=== PATIENT | male | born 1965 | race Caucasian/White ===

== ENCOUNTER → 2019-07-03 | Outpatient (REF) | payer OTHER | LOC: M LAB LCGH 13:53 | PROVIDERS: ATTEND Family Medicine | DX: C44.519 Basal cell carcinoma of skin of other part of trunk (principal) ==

== ENCOUNTER → 2019-09-03 | Outpatient (REF) | LOC: M LAB LCGH 15:16 | PROVIDERS: ATTEND Surgery | DX: C44.519 Basal cell carcinoma of skin of other part of trunk (principal); Z12.11 Encounter for screening for malignant neoplasm of colon ==

== ENCOUNTER → 2022-02-24 | Outpatient (REF) | payer OTHER ==
[~2022-02-24] MED LIST: ACET1TAB55; OXYB10TA23; TAMS1CAP17; [UNRECOGNIZED DRUG - OTHER] PO
[2022-02-24 13:39] LABS: APPEARANCE, URINE CLEAR (CLEAR); BACTERIA, URINE AUTO NEGATIVE (NEGATIVE); BILIRUBIN, URINE AUTO NEGATIVE (NEGATIVE); BLOOD, URINE BLOOD 3+ (NEGATIVE); COLOR, URINE RED (YELLOW); GLUCOSE, URINE (UA) AUTO NEGATIVE (NEGATIVE); KETONE, URINE AUTO NEGATIVE (NEGATIVE); LEUKOCYTE ESTERASE, URINE AUTO 2+ (NEGATIVE); NITRITE, URINE AUTO NEGATIVE (NEGATIVE); PROTEIN, URINE AUTO 2+ mg/dL (NEGATIVE); RBC, URINE AUTO 31 /HPF (0-3); SPECIFIC GRAVITY URINE AUTO 1.003 (1.002-1.035); SQUAMOUS EPITHELIAL CELL UR AU 1 /HPF (0-6); UROBILINOGEN, URINE AUTO 0.2 mg/dL (0.0-2.0); WBC, URINE AUTO 20 /HPF (0-3)
== END ==
LOC: M SMT 13:03
PROVIDERS: ATTEND Physician Assistant
DX: N20.1 Calculus of ureter (principal)

== ENCOUNTER → 2022-02-26 | Outpatient (CLI) | payer OTHER | LOC: M LABSMTC 11:34 | PROVIDERS: ATTEND Anesthesiology | DX: Z01.812 Encounter for preprocedural laboratory examination (principal); Z20.822 Contact with and (suspected) exposure to COVID-19 ==

== ENCOUNTER 2022-03-03 10:17 | Day surgery (SDC) | payer OTHER ==
[~2022-03-03] VITALS: Ht 165.1 cm; Wt 71.6 kg
[~2022-03-03 10:17] MED LIST changes: +ceFAZolin SOD 2 GM in IV 1 EA IV ONE
[2022-03-03] MEDS ORDERED: BACTDSTA PO (10:47)
[2022-03-03] MEDS ORDERED: fentaNYL 100 MCG/2 ML INJECTION As Ordered ONE ×2 (11:01→14:28)
[2022-03-03] MEDS ORDERED: MIDAZOLAM INJ 2MG/2ML VIAL (J2250 PER 1MG) As Ordered ONE (11:01)
[2022-03-03] MEDS ORDERED: LIDOCAINE 2% 100MG/5ML SDV (FOR ANES.) As Ordered ONE (11:01)
[2022-03-03] MEDS ORDERED: propofoL 200 MG/20 ML VIAL As Ordered ONE (11:01)
[2022-03-03] MEDS ORDERED: ONDANSETRON 4MG/2ML VIAL As Ordered ONE (11:02)
[2022-03-03] MEDS ORDERED: dexameTHASONE 4 MG/ML 1ML VIAL (J1100 PER 1MG) As Ordered ONE (11:02)
[2022-03-03] MEDS ORDERED: ISOVUE-300 61% 50ML VIAL As Ordered ONE (12:13)
[2022-03-03] MEDS ORDERED: ACETAMINOPHEN 1000MG 100ML IV BTL (OFIRMEV) (J0131 PER 10MG) As Ordered ONE (12:40)
[2022-03-03] MEDS ORDERED: ePHEDrine SULFATE 25 MG/5 ML(5MG/ML) SYRINGE As Ordered ONE (12:51)
[2022-03-03] MEDS ORDERED: PHENYLephrine 500MCG 5ML (100MCG/ML) SYRINGE As Ordered ONE (12:51)
[2022-03-03] MEDS ORDERED: oxyCODONE 5MG TAB PO PRN (15:25)
[2022-03-03] MEDS ORDERED: fentaNYL 100 MCG/2 ML INJECTION IV PRN (15:25)
[2022-03-03] MEDS ORDERED: ONDANSETRON 4MG/2ML VIAL IV PRN (15:25)
[2022-03-03] MEDS ORDERED: LR 1,000 ML IV SCH (15:25)
[2022-03-03] MEDS ORDERED: PERCOCET 5MG/325MG TAB PO PRN (15:30)
[2022-03-03 16:05] VITALS: BP 123/74
== END 2022-03-03 16:32 | disposition home or self-care (01) ==
LOC: M SDC 10:17
PROVIDERS: ATTEND Urology
DX: N20.1 Calculus of ureter (principal); N21.0 Calculus in bladder; N40.1 Benign prostatic hyperplasia with lower urinary tract symptoms; R33.8 Other retention of urine; N18.30 Chronic kidney disease, stage 3 unspecified; Z79.899 Other long term (current) drug therapy; Z79.2 Long term (current) use of antibiotics; Z87.442 Personal history of urinary calculi; Z87.891 Personal history of nicotine dependence
CPT/HCPCS: 52356; 74420; 82365; C1769; C1894; C2617; J0131; J0690; J1100; J2250; J2370; J2405; J3010; Q9967

== ENCOUNTER 2022-03-10 07:56 | Day surgery (SDC) | payer OTHER ==
[~2022-03-10] VITALS: Ht 165.1 cm; Wt 68.5 kg
[~2022-03-10 07:56] MED LIST changes: +BACTDSTA PO; +LR 1,000 ML IV ONE
[2022-03-10] MEDS ORDERED: ROCURONIUM BROMIDE 50 MG/5 ML VIAL As Ordered ONE (08:34)
[2022-03-10] MEDS ORDERED: propofoL 200 MG/20 ML VIAL As Ordered ONE (08:34)
[2022-03-10] MEDS ORDERED: LIDOCAINE 2% 100MG/5ML SDV (FOR ANES.) As Ordered ONE (08:34)
[2022-03-10] MEDS ORDERED: fentaNYL 250 MCG/5 ML INJECTION As Ordered ONE (08:34)
[2022-03-10] MEDS ORDERED: MIDAZOLAM INJ 2MG/2ML VIAL (J2250 PER 1MG) As Ordered ONE (08:34)
[2022-03-10] MEDS ORDERED: fentaNYL 100 MCG/2 ML INJECTION As Ordered ONE (11:38)
[2022-03-10] MEDS ORDERED: dexameTHASONE 4 MG/ML 1ML VIAL (J1100 PER 1MG) As Ordered ONE (11:42)
[2022-03-10] MEDS ORDERED: ONDANSETRON 4MG/2ML VIAL As Ordered ONE (11:42)
[2022-03-10] MEDS ORDERED: ACETAMINOPHEN 1000MG 100ML IV BTL (OFIRMEV) (J0131 PER 10MG) As Ordered ONE (11:42)
[2022-03-10] MEDS ORDERED: KETOROLAC 60MG 2ML VIAL As Ordered ONE (11:42)
[2022-03-10] MEDS ORDERED: HYDROmorphone HCL 2MG/ML 1ML VIAL As Ordered ONE (13:01)
[2022-03-10] MEDS ORDERED: FUROSEMIDE 100MG/10ML VIAL (J1940) As Ordered ONE (13:10)
[2022-03-10] MEDS ORDERED: ONDANSETRON 4MG/2ML VIAL IV PRN (14:05)
[2022-03-10] MEDS ORDERED: HYDROMORPHONE HCL 0.5 MG/ 0.5 ML SYRINGE (J1170 PER 1) IV PRN (14:05)
[2022-03-10] MEDS ORDERED: oxyCODONE 5MG TAB PO PRN (14:05)
[2022-03-10] MEDS ORDERED: fentaNYL 100 MCG/2 ML INJECTION IV PRN (14:05)
[2022-03-10] MEDS ORDERED: LR 1,000 ML IV SCH (14:05)
[2022-03-10] MEDS ORDERED: ACETAMINOPHEN TAB 650MG DOSE (2X325MG) PO PRN (14:10)
[2022-03-10] MEDS ORDERED: CIPR-249 PO (14:53)
[2022-03-10 15:20] VITALS: BP 106/65
== END 2022-03-10 15:45 | disposition home or self-care (01) ==
LOC: M SDC 07:56
PROVIDERS: ATTEND Urology
DX: N40.1 Benign prostatic hyperplasia with lower urinary tract symptoms (principal); R33.8 Other retention of urine; N21.0 Calculus in bladder; Z85.828 Personal history of other malignant neoplasm of skin; Z86.69 Personal history of other diseases of the nervous system and sense organs; Z79.899 Other long term (current) drug therapy
CPT/HCPCS: 52601; 82365; 87426; J0131; J0690; J1100; J1170; J1885; J1940; J2250; J2405; J3010

== ENCOUNTER → 2023-04-28 | Outpatient (REF) | payer OTHER ==
[~2023-04-28] MED LIST changes: +CIPR-249 PO; -LR 1,000 ML IV ONE; -ceFAZolin SOD 2 GM in IV 1 EA IV ONE
[2023-04-28 14:23] LABS: APPEARANCE, URINE CLEAR (CLEAR); BACTERIA, URINE AUTO NEGATIVE (NEGATIVE); BILIRUBIN, URINE AUTO NEGATIVE (NEGATIVE); BLOOD, URINE BLOOD NEGATIVE (NEGATIVE); COLOR, URINE STRAW (YELLOW); GLUCOSE, URINE (UA) AUTO NEGATIVE (NEGATIVE); KETONE, URINE AUTO NEGATIVE (NEGATIVE); LEUKOCYTE ESTERASE, URINE AUTO TRACE (NEGATIVE); NITRITE, URINE AUTO NEGATIVE (NEGATIVE); PROTEIN, URINE AUTO NEGATIVE (NEGATIVE); RBC, URINE AUTO 0 /HPF (0-3); SPECIFIC GRAVITY URINE AUTO 1.002 (1.002-1.035); SQUAMOUS EPITHELIAL CELL UR AU 0 /HPF (0-6); UROBILINOGEN, URINE AUTO 0.2 mg/dL (0.0-2.0); WBC, URINE AUTO 0 /HPF (0-3)
== END ==
LOC: M SMT 12:52
PROVIDERS: ATTEND Physician Assistant
DX: N40.1 Benign prostatic hyperplasia with lower urinary tract symptoms (principal)